=== PATIENT | female | born 1995 | race Caucasian/White ===

== ENCOUNTER 2016-10-22 22:24 | Emergency (ER) | payer SELFPAY ==
[~2016-10-22] VITALS: Ht 165.1 cm; Wt 94.0 kg
[2016-10-22 22:32] VITALS: Ht 165.1 cm; Wt 94.0 kg
[2016-10-22 23:06] VITALS: BP 132/75; PULSE 93; RESP 16
--- NOTE | 2016-10-23 00:03 | ERD ---
ER Documentation Chief Complaint Date/Time DATE: 10/22/16 TIME: 23:59 Chief Complaint Pt reports started taking lamictal 2 days ago now has a cough HPI This is a 21-year-old female presenting to the emergency department with a history of Crohn's disease complaining of swelling in her hands and feet since last night. Patient states that she just started taking any medication called Lamictal 2 days ago. Patient does admit to having a cough. She denies shortness of breath, trouble breathing, chest pain. She denies any rashes. Patient denies fever ROS All systems reviewed and are negative except as per history of present illness. PMhx/Soc History of Surgery: Yes (corrective eye muscle, ) Hx Neurological Disorder: Yes (depression, seizures, ) Hx Miscellaneous Medical Probl: Yes (crohn's, strabismus) Hx Alcohol Use: No Hx Substance Use: Yes (marijuana) Hx Tobacco Use: No Physical Exam Vitals Vital Signs Date Time Temp Pulse Resp B/P Pulse Ox O2 Delivery O2 Flow Rate FiO2 10/22/16 23:06 93 16 132/75 95 Room Air 10/22/16 22:32 98.5 101 16 157/94 96 Physical Exam General: WD/WN, in no apparent distress, non-toxic appearing HENT: NC/AT, oropharynx is clear Eyes: Conjunctiva normal Neck: Supple Pulm: Clear to auscultation, normal labored breathing; no wheezing/rales/ rhonchi heard CV: Good capillary refill GI: Non-distended, no guarding Back: No masses Ext: Swelling in the hands and feet, no pitting edema, no restricted range of motion. Neuro: Moves on all fours Skin: Normal turgor, color, and temperature. No ulcerations or rashes noted. Psych: Normal mood Procedures/MDM This is a 21-year-old female presenting to the emergency room complaining of peripheral edema and cough status post starting a new medication called Lamictal 2 days ago. On examination patient did not show any evidence of an allergic reaction or anaphylaxis. Patient had swelling in her hands and feet that were not very obvious however parents confirmed that they look swollen compared to before. According to up-to-date peripheral edema, edema flulike symptoms are adverse reactions of the medication. I discussed to discontinue the medication until she is able to follow-up with her primary care physician on Tuesday. I discussed with her to return to the emergency room for any worsening signs or symptoms. Otherwise patient appears well, she looks stable nontoxic speaking clearly. I have consulted this case with my supervising physician Dr. Lozano who has agreed with my plan above. Patient stable for discharge. She understands and agrees with the plan Departure Diagnosis: Primary Impression: Medication side effect Condition: Stable Patient Instructions: Peripheral Edema, Bilateral, Lamotrigine Oral tablet Referrals: YOUR DOCTOR Additional Instructions: FOLLOW UP WITH YOUR PRIMARY CARE PHYSICIAN TOMORROW.Return to this facility if you are not improving as expected. Return to this facility if you are not improving as expected. ESTHER ALDRICH PA-C Oct 23, 2016 00:03
[2016-10-23 00:28] VITALS: TEMP 97.8
== END 2016-10-23 00:28 | disposition home or self-care (01) ==
LOC: FTE 22:24
DX: R60.0 Localized edema (principal); R05 Cough
CPT/HCPCS: 99282